=== PATIENT | female | born 1955 | race Caucasian/White ===

== ENCOUNTER 2017-08-16 15:05 | Emergency (ER) | payer MEDICAID ==
[~2017-08-16] VITALS: Ht 154.9 cm; Wt 86.2 kg
[2017-08-16] MEDS ORDERED: NKM (15:29)
[2017-08-16] MEDS ORDERED: Ampicillin/Sulbactam Sod 3 GM in NS 110 ML IVPB ONE (16:00)
[2017-08-16] MEDS ORDERED: Unasyn 3gm Inj ONE (16:03)
[2017-08-16 16:32] LABS: EOSINOPHILS % (AUTO) 1.5 % (0.0-3.0); HEMATOCRIT 38.6 % (37.0-47.0); HEMOGLOBIN 12.9 G/DL (12.0-16.0); LYMPHOCYTES % (AUTO) 14.3 % (20.0-45.0); MEAN CORPUSCULAR VOLUME 78 FL (80-99); MONOCYTES % (AUTO) 6.5 % (1.0-10.0); NEUTROPHILS % (AUTO) 76.7 % (45.0-75.0); PLATELET COUNT 308 K/UL (150-450); RED BLOOD COUNT 4.94 M/UL (4.20-5.40); WHITE BLOOD COUNT 12.3 K/UL (4.8-10.8)
[2017-08-16 16:35] VITALS: BP 145/86
[2017-08-16 17:01] LABS: ANION GAP 9 mmol/L (5-15); BLOOD UREA NITROGEN 22 mg/dL (7-18); CALCIUM 9.6 MG/DL (8.5-10.1); CARBON DIOXIDE 25 MMOL/L (21-32); CHLORIDE 102 MMOL/L (98-107); CREATININE 1.1 MG/DL (0.55-1.30); SODIUM 136 MMOL/L (136-145)
[2017-08-16 17:07] LABS: ALANINE AMINOTRANSFERASE 32 U/L (12-78); ALBUMIN/GLOBULIN RATIO 0.6 (1.0-2.7); ALKALINE PHOSPHATASE 87 U/L (46-116); ASPARTATE AMINO TRANSFERASE 22 U/L (15-37); BILIRUBIN,TOTAL 0.3 MG/DL (0.2-1.0)
[2017-08-16] MEDS ORDERED: NORCO 5-325 TA1 EACH ORAL (18:22)
[2017-08-16 18:34] VITALS: BP 140/83
[2017-08-16 18:36] VITALS: BP 140/83
--- NOTE | 2017-08-16 20:56 | Emergency Room Report ---
History of Present Illness General Chief Complaint: Toothache Source: Patient Present Illness HPI 62-year-old female presents ED for evaluation. Patient complaining of right- sided facial pain and swelling. Status post wisdom tooth extraction last Wednesday. States that she was placed on antibiotics and was prescribed Augmentin on Wednesday. States she's having increased pain and swelling to the right side of her face. Throbbing, 8/10, nonradiating. Denies fevers or chills. No other aggravating relieving factors. Denies any other associated symptoms Allergies: Coded Allergies: No Known Allergies (Unverified , 08/16/17) Patient History Past Medical History: none Past Surgical History: none Pertinent Family History: none Social History: Denies: smoking, alcohol use, drug use Now: No Immunizations: UTD Reviewed Nursing Documentation: PMH: Agreed, PSxH: Agreed Nursing Documentation-PMH Past Medical History: No Stated History Review of Systems All Other Systems: negative except mentioned in HPI Physical Exam Vital Signs Date Time Temp Pulse Resp B/P (MAP) Pulse Ox O2 Delivery O2 Flow Rate FiO2 08/16/17 15:25 98.2 86 17 150/87 95 Room Air Sp02 EP Interpretation: reviewed, normal General Appearance: no apparent distress, alert, GCS 15, non-toxic Head: normocephalic, other - R sided facial swelling Eyes: bilateral eye normal inspection, bilateral eye PERRL ENT: hearing grossly normal, normal pharynx, no angioedema, normal voice, other - R sided facial swelling. no fluctuance Neck: full range of motion, supple, no bony tend, supple/symm/no masses Respiratory: normal inspection Cardiovascular #1: normal inspection Gastrointestinal: normal inspection Rectal: deferred Genitourinary: no CVA tenderness Musculoskeletal: normal inspection Neurologic: alert, oriented x3, responsive, motor strength/tone normal, sensory intact, speech normal Psychiatric: normal inspection Skin: normal inspection Lymphatic: normal inspection Medical Decision Making Diagnostic Impression: Primary Impression: Facial cellulitis Additional Impression: S/P tooth extraction ER Course Hospital Course 62-year-old female presents to ED with increased right facial pain and swelling status post wisdom tooth extraction Differential diagnosis includes- cellulitis, abscess, hematoma Clinical course Patient placed on stretcher. After initial history and physical I ordered labs , IV unasyn, CT facial bone Labs - noted leukocytosis, electrolytes ok, CT scan shows R facial cellulitis, no evidence of abcess Discussed findings with patient. Patient appears nontoxic, afebrile. I believe patient be safely discharged to home to continue the antibiotics prescribed by dentist patient agrees with plan I feel this is a highly complex case requiring extensive working including EKG/ Rhythm strip, Xray/CT/US, Blood/urine lab work, repeat exams while in ED, and administration of strong opiates/narcotics for pain control, admission to hospital or close patient follow up. Diagnosis - facial cellulitis, s/p tooth extraction Stable and discharged to home with Rx [place]. continue augmentin as prescribed. Followup with dentist. Return to ED if symptoms recur or worsen Labs Test 08/16/17 16:20 White Blood Count 12.3 K/UL (4.8-10.8) Red Blood Count 4.94 M/UL (4.20-5.40) Hemoglobin 12.9 G/DL (12.0-16.0) Hematocrit 38.6 % (37.0-47.0) Mean Corpuscular Volume 78 FL (80-99) Mean Corpuscular Hemoglobin 26.0 PG (27.0-31.0) Mean Corpuscular Hemoglobin Concent 33.3 G/DL (32.0-36.0) Red Cell Distribution Width 13.0 % (11.6-14.8) Platelet Count 308 K/UL (150-450) Mean Platelet Volume 7.3 FL (6.5-10.1) Neutrophils (%) (Auto) 76.7 % (45.0-75.0) Lymphocytes (%) (Auto) 14.3 % (20.0-45.0) Monocytes (%) (Auto) 6.5 % (1.0-10.0) Eosinophils (%) (Auto) 1.5 % (0.0-3.0) Basophils (%) (Auto) 1.0 % (0.0-2.0) Sodium Level 136 MMOL/L (136-145) Potassium Level 4.0 MMOL/L (3.5-5.1) Chloride Level 102 MMOL/L (98-107) Carbon Dioxide Level 25 MMOL/L (21-32) Anion Gap 9 mmol/L (5-15) Blood Urea Nitrogen 22 mg/dL (7-18) Creatinine 1.1 MG/DL (0.55-1.30) Estimat Glomerular Filtration Rate 50.3 mL/min (>60) Glucose Level 79 MG/DL (74-106) Calcium Level 9.6 MG/DL (8.5-10.1) Total Bilirubin 0.3 MG/DL (0.2-1.0) Aspartate Amino Transf (AST/SGOT) 22 U/L (15-37) Alanine Aminotransferase (ALT/SGPT) 32 U/L (12-78) Alkaline Phosphatase 87 U/L (46-116) Total Protein 7.8 G/DL (6.4-8.2) Albumin 3.0 G/DL (3.4-5.0) Globulin 4.8 g/dL Albumin/Globulin Ratio 0.6 (1.0-2.7) CT/MRI/US Diagnostic Results CT/MRI/US Diagnostic Results : Imaging Test Ordered: CT Facial w/ contrast Impression Thickening and heterogeneity of the musculature in the right adjunct writing instructor space edema with low attenuated changes or evolving fluid collections. Soft tissue edema, swelling and inflammation/infiltration, greatest on the right side. Cervical adenopathy. Presumed extraction of the right lower molar. Superimposed infection may be considered Last Vital Signs Date Time Temp Pulse Resp B/P (MAP) Pulse Ox O2 Delivery O2 Flow Rate FiO2 08/16/17 18:36 98.2 78 17 140/83 97 Room Air Status: improved Disposition: HOME, SELF-CARE Condition: Stable Scripts Hydrocodone Bit/Acetaminophen 5-325* (NORCO 5-325*) 1 Each Tablet 1 TAB ORAL Q6H Y for For Pain, #10 TAB 0 Refills Prov: PAVAN CAVAZOS M.D. 08/16/17 Patient Instructions: Dental Pain PAVAN CAVAZOS M.D. Aug 16, 2017 20:56
--- NOTE | 2017-08-17 10:14 | Diagnostic Imaging Report ---
Indication: Right-sided facial swelling, status post tooth extraction Technique: IV administration nonionic contrast. Spiral acquisitions obtained through the Multiplanar reconstructions were generated. Total dose length product 604.22 mGycm. CTDIvol(s) 28.19 mGy. Radiation dose was minimized using automated exposure control Comparison: none Findings: There is evidence of extraction of the right second and third mandibular molars, with air-filled defect seen at the prior location of the third, consistent with reported clinical history of recent extraction. There is swelling and heterogeneity of the overlying masseter muscle. Small irregular focus of low attenuation surrounded by some enhancement measures 2 x 1 x 4.6 cm, may represent cysts present small/developing abscess versus phlegmon. There is infiltration of the subcutaneous fat of the inferior face, which extends across the midline. There is associated skin thickening. Mildly enlarged submandibular and anterior triangle lymph nodes are noted. The tonsils, nasopharynx, hypopharynx, and adenoids are unremarkable. The salivary glands are unremarkable. There is evidence of prior left second and third mandibular molar extractions as well. Multiple dental extractions in the axilla are also noted. No acute fractures. The sinuses are clear. Incidentally noted is area of dense contrast enhancement in the brain in the right parietal lobe, with a large draining vein. This measures approximately 2.4 cm long axis dimension. Impression: Enlarged right masseter muscle, presumably due to cellulitis related to recent dental extraction. Central low-attenuation may represent phlegmon or early abscess formation. There is also evidence of cellulitis of the adjacent subcutaneous fat. Submandibular and anterior triangle lymphadenopathy. 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 Suspect a small arteriovenous malformation given the large draining veins. Recommend further evaluation with contrast MRI if this has not been worked up previously. This recommendation was discussed by phone with Dr. Mauro at the time of interpretation This agrees with the preliminary interpretation provided overnight by [facility] service. The CT scanner at [facility] is accredited by the [employer] and the scans are performed using protocols designed to limit radiation exposure to as low as reasonably achievable to attain images of sufficient resolution adequate for diagnostic evaluation.
== END 2017-08-16 18:37 | disposition home or self-care (01) ==
LOC: EMR 17:45
DX: L03.211 Cellulitis of face (principal); K08.409 Partial loss of teeth, unspecified cause, unspecified class
CPT/HCPCS: 36415; 70487; 80053; 85025; 96365; 99284; J0295; Q9967

== ENCOUNTER 2017-08-19 13:41 | Emergency (ER) | payer MEDICAID ==
[~2017-08-19] VITALS: Ht 154.9 cm; Wt 86.2 kg
[~2017-08-19 13:41] MED LIST: NKM; NORCO 5-325 TA1 EACH ORAL
[2017-08-19] MEDS ORDERED: Clindamycin 600mg 50 ML IVPB ONE (14:15)
[2017-08-19] MEDS ORDERED: Piperacillin/Tazobactam 3.375 GM in NS 55 ML IV ONE (14:15)
--- NOTE | 2017-08-19 14:40 | Emergency Room Report ---
History of Present Illness General Chief Complaint: Skin Rash/Abscess Source: Patient Present Illness HPI 62o F presents with right facial swelling for the past 5 days She reports it has improved slightly as involve the temporal area now that's improved but still has a lot of involvement cheek She is on day 6 of Augmentin She reports no fevers since she started antibiotic She denies burred vision, throat swelling, redness, and reports it is only slightly painful Symptoms started after she had a tooth extraction last week Allergies: Coded Allergies: No Known Allergies (Unverified , 08/16/17) Patient History Past Medical History: see triage record Last Menstrual Period: na Reviewed Nursing Documentation: PMH: Agreed, PSxH: Agreed Nursing Documentation-PMH Past Medical History: No History, Except For Hx Asthma: Yes Review of Systems All Other Systems: negative except mentioned in HPI Physical Exam Vital Signs Date Time Temp Pulse Resp B/P (MAP) Pulse Ox O2 Delivery O2 Flow Rate FiO2 08/19/17 14:12 97.9 86 18 115/68 98 Room Air Sp02 EP Interpretation: reviewed, normal General Appearance: no apparent distress, alert, non-toxic Head: normocephalic Eyes: bilateral eye normal inspection, bilateral eye PERRL, bilateral eye EOMI ENT: normal ENT inspection, hearing grossly normal, normal pharynx, no angioedema, normal voice, uvula midline, moist mucus membranes, other - Right buccal mucosa With induration but no fluctuance and no erythema, mild tenderness. And gingiva within normal in patient with missing from recent extraction of maxillary molar Neck: normal inspection, full range of motion, supple, thyroid normal, no meningismus, supple/symm/no masses Respiratory: chest non-tender, lungs clear, normal breath sounds, chest symmetrical, palpation of chest normal Cardiovascular #1: normal peripheral pulses, regular rate, rhythm Cardiovascular #2: 2+ radial (R), 2+ radial (L) Gastrointestinal: normal inspection, non tender, soft, no mass, no guarding, no rebound Rectal: deferred Genitourinary: normal inspection, no CVA tenderness Musculoskeletal: back normal, gait/station normal, normal range of motion, non- tender, no calf tenderness Neurologic: alert, responsive, curing press maintainer III-XII nml as tested, motor strength/tone normal, sensory intact, speech normal Psychiatric: judgement/insight normal, memory normal, mood/affect normal, no suicidal/homicidal ideation Skin: normal color, no rash, warm/dry, normal turgor Lymphatic: normal inspection, no adenopathy - No tender cervical LAD Medical Decision Making Last Vital Signs Date Time Temp Pulse Resp B/P (MAP) Pulse Ox O2 Delivery O2 Flow Rate FiO2 08/19/17 14:12 97.9 86 18 115/68 98 Room Air Referrals: NOT CHOSEN IPA/,REFERRING (PCP) SIS SMITH M.D Aug 19, 2017 14:40
[2017-08-19 16:15] LABS: BASOPHILS % (AUTO) 0.9 % (0.0-2.0); EOSINOPHILS % (AUTO) 2.5 % (0.0-3.0); HEMATOCRIT 36.9 % (37.0-47.0); HEMOGLOBIN 13.1 G/DL (12.0-16.0); LYMPHOCYTES % (AUTO) 16.7 % (20.0-45.0); MEAN CORPUSCULAR VOLUME 79 FL (80-99); MONOCYTES % (AUTO) 4.9 % (1.0-10.0); PLATELET COUNT 358 K/UL (150-450); RED BLOOD COUNT 4.69 M/UL (4.20-5.40); RED CELL DISTRIBUTION WIDTH 12.9 % (11.6-14.8); WHITE BLOOD COUNT 9.7 K/UL (4.8-10.8)
[2017-08-19 16:18] VITALS: BP 112/94
[2017-08-19] MEDS ORDERED: Zosyn 3.375gm inj ONE (16:21)
[2017-08-19 16:23] LABS: ANION GAP 8 mmol/L (5-15); BLOOD UREA NITROGEN 22 mg/dL (7-18); CALCIUM 9.2 MG/DL (8.5-10.1); CARBON DIOXIDE 27 MMOL/L (21-32); CHLORIDE 102 MMOL/L (98-107); CREATININE 0.9 MG/DL (0.55-1.30); SODIUM 137 MMOL/L (136-145)
[2017-08-19] MEDS ORDERED: AUGMENTIN 875-1 EAC1 ORAL ×2 (16:41→17:07)
[2017-08-19 17:26] VITALS: BP 145/82
== END 2017-08-19 17:32 | disposition home or self-care (01) ==
LOC: EMR 14:30 → UNDOADMIN 14:34 → 3E 14:34 → EDBEDREQ 15:30
DX: R60.0 Localized edema (principal); J45.909 Unspecified asthma, uncomplicated
CPT/HCPCS: 36415; 80048; 85025; 96365; 96366; 99284; J2543; S0077